=== PATIENT | female | born 2000 | race Caucasian/White ===

== ENCOUNTER 2024-05-27 16:39 | Outpatient (CLI) | payer MEDICAID, SELFPAY ==
[2024-05-27 16:45] VITALS: BMI 23.6
[2024-05-27 17:18] VITALS: BP 106/65; PULSE 91
[2024-05-27 17:38] VITALS: BP 115/72; PULSE 92
[2024-05-27 18:00] VITALS: BP 115/72; PULSE 92; RESP 18
[2024-05-27 20:43] LABS: HIV 1 & 2 Antibody Non-Reactive (Non-Reactiv); HIV 1 & 2 Antigen Non-Reactive (Non-Reactiv)
[2024-05-27 20:50] LABS: Rapid Plasma Reagin Syphilis Nonreactive (Nonreactive)
[2024-05-27 23:30] LABS: Hepatitis B Surface Antigen Non-Reactive (Nonreactive); Rubella IgG 221.3 IU/mL (0.0-10.0)
[2024-05-29 15:59] LABS: Chlamydia Trachomatis RNA TMA DETECTED (NOT DETECTED); Neisseria Gonorrhoeae RNA, TMA NOT DETECTED (NOT DETECTED)
== END 2024-05-27 17:55 | disposition home or self-care (01) ==
LOC: OPOB 16:40 → OBGYN 16:54
PROVIDERS: Family Provider Family Medicine; Visit Provider Obstetrics & Gynecology
DX: O26.899 Other specified pregnancy related conditions, unspecified trimester (principal); Z3A.00 Weeks of gestation of pregnancy not specified; R10.9 Unspecified abdominal pain
CPT/HCPCS: 36415; 59025; 86592; 86762; 87081; 87340; 87491; 87591; 87806; 99211

== ENCOUNTER → 2024-06-15 13:09 | Outpatient (BNVA) | payer OTHER, MEDICAID, SELFPAY | PROVIDERS: Visit Provider Nurse Practitioner Women's Health | DX: O09.30 Supervision of pregnancy with insufficient antenatal care, unspecified trimester (principal); O99.320 Drug use complicating pregnancy, unspecified trimester; F19.10 Other psychoactive substance abuse, uncomplicated | CPT/HCPCS: 80307; 84315 ==

== ENCOUNTER → 2024-06-21 13:09 | Outpatient (BNVA) | payer OTHER, MEDICAID, SELFPAY | PROVIDERS: Visit Provider Nurse Practitioner Women's Health | DX: O99.320 Drug use complicating pregnancy, unspecified trimester (principal); F19.10 Other psychoactive substance abuse, uncomplicated; O09.30 Supervision of pregnancy with insufficient antenatal care, unspecified trimester | CPT/HCPCS: 80307; 81000; 87491; 87591 ==

== ENCOUNTER 2024-06-28 09:03 | Inpatient (IN) | payer OTHER, MEDICAID, SELFPAY ==
[2024-06-28] VITALS (18 sets, daily range): BP systolic 94–130; BP diastolic 53–88; PULSE 76–102; RESP 16–18; TEMP 36.6–37.4; O2SAT 98–99; BMI 25.4
[2024-06-28 09:28] LABS: Basophils # 0.1 10^3/uL (0.0-0.1); Basophils % 0.3 %; Eosinophils # 0.1 10^3/uL (0.0-0.8); Eosinophils % 0.3 %; Hematocrit 30.4 % (36-47); Lymphocytes # 2.7 10^3/uL (0.8-4.8); Lymphocytes % 14.4 %; Mean Corpuscular HGB Conc 31.3 g/dL (30-55); Mean Corpuscular Hemoglobin 25.6 pg (27-33); Mean Corpuscular Volume 81.9 fl (85-98); Mean Platelet Volume 9.1 fL (7.4-10.4); Monocytes % 5.2 %; Neutrophils # 14.82 10^3/uL (1.8-7.7); Neutrophils % 78.7 %; Nucleated Red Blood Cells % 0 %; Platelet Count 514 10^3/cmm (157-399); Red Blood Count 3.71 10^6/uL (3.85-5.65); Red Cell Distribution Width 14.3 % (12.1-15.1); White Blood Count 18.82 10^3/uL (3.29-11.43)
--- NOTE | 2024-06-28 09:37 | PM.OPHPUD ---
Labor & Delivery H&P Update Date of Procedure: June 28, 2024 Date H&P Performed: 06/21/24 Changes to previous documentation: This is a 23-year-old female G4, P3 at 40.5 weeks gestation, CARLI 06/23/2024 admitted to labor and delivery in active labor. Patient's initial cervical exam?5 cm / 80%/-2 vertex presentation, EFM?category 1 with contractions every 2 to 4 minutes. Patient was recently seen at the clinic 06/21/2024 for routine visit. Her record has been reviewed with no medical information or physical exam no entries update to be made. Patient gives history of having fast labors, last 3 deliveries spontaneous vaginal without complications. Patient's medical record shows treatment of chlamydia with a negative test of cure. GBS negative PMH?negative Surgical history?dental Social history?patient admits to smoking tobacco 2 to 3 cigarettes/day, she denies alcohol or street drugs. Allergies?no known drug allergies Medications? vitamins Family history?no changes Physical exam?23-year-old female alert and orient x 3 breathing through contractions well. VSS, afebrile Mouth?very poor dentition almost edentulous Heart?regular rate and rhythm Lungs?CTA bilateral Abdomen?soft, gravid Extremities?no edema, negative Homans' sign Cervix?7 to 8 cm / 100%/0 vertex with category 1 EFM and contractions every 2 to 3 minutes. Patient does not desire an epidural. She will consider IV pain medicine if desired. Labor reviewed. Admission Diagnosis: 40.5-week gestation Multigravida-G4, P3 GBS negative Tobacco abuse during Late care in third trimester History of chlamydia with negative test of cure Poor dentition Primary indication for procedure: Patient admitted to labor and delivery for management of labor Planned procedure:
[2024-06-28 10:10] LABS: Amphetamines Screen Urine Negative (Negative); Barbiturates Screen Urine Negative (Negative); Benzodiazepines Screen Urine Negative (Negative); Cocaine Screen Urine Negative (Negative); Opiate Screen Urine Negative (Negative); PCP Screen Urine Negative (Negative); THC Screen Urine Positive (Negative)
[2024-06-28] MEDS: oxytocin 30 UNIT/500 ML BAG 600 UNIT IV (11:22)
[2024-06-28] MEDS: miSOPROStol 200 mcg Tablet 800 MCG PR (11:26)
--- NOTE | 2024-06-28 11:32 | P.PCNOB_ITS ---
Delivery Note: Date of delivery: June 28, 2024 Pre-delivery diagnoses: 40.5-week gestation Active labor Multigravida GBS negative Late care in third trimester History of anemia History of chlamydia with test of cure negative Poor dentition Post-delivery diagnoses: Same hemorrhage treated with Cytotec 800 mg Procedure: viable male 7 pounds 13 ounces, 9/9 Op report anesthesia: None Delivering Physician: Marlys Calabrese DO Estimated blood loss (mL): 500 Pre-Delivery Course: 23-year-old female admitted to lab or and delivery in early labor at 4 to 5 cm. Patient progressed to labor in an uneventful manner with contractions every 2 to 3 minutes. She desired no epidural pain management. Patient's care was with Dr. Mckay starting at 36 weeks gestation. She was treated for chlamydia with a negative test of cure. GBS negative. Delivery: 23-year-old G4, P4 delivered via of viable male OA presentation over intact perineum. The vertex presented and with rotation of the posterior shoulder the baby delivered. The baby boy was stimulated and after 2 to 3-minute delay the umbilical cord was clamped and cut and baby placed on the mother's abdomen for bonding. Nursing staff in attendance evaluated and assessed. Three-vessel cord was noted, cord pH and cord blood were drawn and handed off. The uterus was massaged and the placenta presented in a Laurent presentation with trailing membranes, followed by a large clot and moderate bleeding. 800 mg of Cytotec was placed rectally, the uterus firmed with continuous massage. IV fluid with Pitocin was bolused. Bleeding was controlled. Uterus remained firm. Uterus and vaginal vault were explored with no lacerations noted. Mother and infant are both in stable and satisfactory condition History History History 4 Term 4 0 Miscarriages/Ectopic 0 Living Children 4 A&P Assessment and plan (1) (spontaneous vaginal delivery): (2) hemorrhage: (3) Anemia: (4) Late care affecting in third trimester: Plan Began care Coding Level of Care Code Acute Code for Chg Fwd Diagnoses (spontaneous vaginal delivery) O80 hemorrhage O72.1 Anemia D64.9 Late care affecting in third trimester O09.33
[2024-06-28] MEDS: ibuprofen 800 mg tablet PO ×2 (15:06→20:27)
--- NOTE | 2024-06-28 19:12 | PC.NURSE ---
DFS CALLED PT DOESN'T HAVE CUSTODY OF HER OTHER 3 CHILDREN, SHE CAN NOT REMEMBER THEIR DATES MAYBE JANUARY OR 2019 AND JANUARY OR FEBRUARY 2021 AND MAYBE OCTOBER 2022 . PATIENT DID NOT HAVE ANY CARE PRIOR TO COMING TO OB LAST MONTH I BELIEVE THE . PATIENT WAS POSITIVE THEN FOR THC WELL TODAY. PT ACTS DIFFERENTLY THIS VISIT THAN PER VISIT. WAS VERY NERVOUS AND JITTERY THEN BUT NOT NOW, BOTH PARENTS SHOW MUCH TLC TO BABY. WE DID OBTAIN MEC STOOL AND URINE FOR TESTING. 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 GUERRA AT HER LAST OB VISIT WITH ME AND SHE DID FOLLOW UP WITH HIM SINCE THEN AND HAD REGULAR CARE.
[2024-06-28] MEDS: docusate sodium 100 mg Capsule PO (20:27)
[2024-06-28] MEDS: acetaminophen 325 mg Tablet 650 MG PO (21:26)
[2024-06-29 00:41] LABS: Hematocrit 24.1 % (36-47); Mean Corpuscular HGB Conc 32.8 g/dL (30-55); Mean Corpuscular Hemoglobin 25.8 pg (27-33); Mean Corpuscular Volume 78.8 fl (85-98); Mean Platelet Volume 9.3 fL (7.4-10.4); Platelet Count 479 10^3/cmm (157-399); Red Blood Count 3.06 10^6/uL (3.85-5.65); Red Cell Distribution Width 14.5 % (12.1-15.1); White Blood Count 18.83 10^3/uL (3.29-11.43)
[2024-06-29 01:55] VITALS: BP 106/63; PULSE 76; RESP 15; TEMP 36.7; O2SAT 98
[2024-06-29 04:00] VITALS: BP 108/69; PULSE 79; RESP 16; TEMP 36.9; O2SAT 99
[2024-06-29 06:00] VITALS: BP 108/69; PULSE 79; RESP 16; TEMP 36.9; O2SAT 99
[2024-06-29] MEDS: PRENATAL VIT NO.130/IRON/FOLIC 1 EACH TABLET PO (08:52)
[2024-06-29] MEDS: docusate sodium 100 mg Capsule PO (08:52)
[2024-06-29] MEDS: ibuprofen 800 mg tablet PO ×2 (08:52→16:12)
[2024-06-29 10:00] VITALS: BP 115/74; PULSE 75; RESP 17; TEMP 36.6; O2SAT 99
[2024-06-29] MEDS: acetaminophen 325 mg Tablet 650 MG PO (12:32)
--- NOTE | 2024-06-29 14:05 | P.PN_ITS ---
BATH ATTENDANT Subjective 2 Subjective: Interval history: no c/o no bleeding, pain eating, voiding, ambulating well Labor: Station: +1 Amniotic Membrane Status: Intact Monitor Mode: External Contraction Pattern: Regular Vitals/I&O/Wt Last Vital Signs Temp 98.0 F 06/29/24 17:00 Pulse 72 06/29/24 17:00 Resp 16 06/29/24 17:00 BP 111/69 06/29/24 17:00 Pulse Ox 99 06/29/24 17:00 O2 Del Method Room Air 06/29/24 16:15 Physical Exam 2 Narrative: Exam: afebrile, VS normal comfortable, awake, alert Abd: soft, nontender. fundus firm Ext: no edema; nontender Data 06/29/24 00:30 A&P Assessment and plan (1) (spontaneous vaginal delivery): PPD #1 doing well discharge to home today instructions and precautions given call/return if fever, chills, headache, blurry vision, nausea, vomiting, abdominal pain; vaginal bleeding or discharge; shortness of breath, chest pain, leg pains or swelling; inability to void, perineal pain or swelling; feelings of depression or mood changes; thoughts of suicide or harming others; inability to care for baby. f/u in 2 weeks or PRN Attestations 2 Medical Necessity Statement*: patient s/p vaginal delivery, plan to discharge to home today Coding Level of Care Code Acute Code for Chg Fwd Diagnoses (spontaneous vaginal delivery) O80 Time Spent (min) 20
--- NOTE | 2024-06-29 15:10 | PM.OBGYDC ---
Discharge Providers GASTROENTEROLOGY MANAGER Date of Admission: 06/28/24 09:03 Date of Discharge: 06/29/24 Attending Provider at Admission: Marlys Calabrese DO Attending Provider at Discharge: Slim Mendoza MD Consults: none Primary GASTROENTEROLOGY MANAGER: Slim Mendoza MD Diagnoses at Discharge Discharge Diagnosis (1) (spontaneous vaginal delivery): Details from hospital stay: 23 y.o. approximate EDC June 23, 2024 at approximately 40.5 weeks gestation patient's first visit was on June 01, 2024 had received no care prior to that date h/o x three presented to L&D c/o painful uterine contractions was in active labor fetus reassuring throughout patient proceeded to deliver vaginally without any complications had mild bleeding well-controlled with cytotec rectally patient did well and was discharged to home on the first day Of note, Department of Family Services was involved and removed from patient's custody. Status: Acute Reason for Visit Reason for Visit: CTX Brief History: 23 y.o. approximate EDC June 23, 2024 at approximately 40.5 weeks gestation patient's first visit was on June 01, 2024 had received no care prior to that date h/o x three presented to L&D c/o painful uterine contractions Hospital Course Hospital Course 23 y.o. approximate EDC June 23, 2024 at approximately 40.5 weeks gestation patient's first visit was on June 01, 2024 had received no care prior to that date h/o x three presented to L&D c/o painful uterine contractions was in active labor fetus reassuring throughout patient proceeded to deliver vaginally without any complications had mild bleeding well-controlled with cytotec rectally patient did well and was discharged to home on the first day Of note, Department of Family Services was involved and removed from patient's custody. Information Peripartum Data: Delivery Method: Vaginal Laceration description: None Episiotomy description: None complications: none Physical Exam Narrative: afebrile, VS normal comfortable, awake, alert Abd: soft, nontender. fundus firm Ext: no edema; nontender History History History 4 Term 4 0 Miscarriages/Ectopic 0 Living Children 4 Discharge Data Studies Completed and Pending Laboratory Results WBC 18.83 10^3/uL (3.29-11.43) H 06/29/24 00:30 RBC 3.06 10^6/uL (3.85-5.65) L 06/29/24 00:30 Hgb 7.90 g/dL (11.27-16.99) L 06/29/24 00:30 Hct 24.1 % (36-47) L 06/29/24 00:30 MCV 78.8 fl (85-98) L 06/29/24 00:30 MCH 25.8 pg (27-33) L 06/29/24 00:30 MCHC 32.8 g/dL (30-55) 06/29/24 00:30 RDW 14.5 % (12.1-15.1) 06/29/24 00:30 Plt Count 479 10^3/cmm (157-399) H 06/29/24 00:30 MPV 9.3 fL (7.4-10.4) 06/29/24 00:30 Neut % (Auto) 78.7 % 06/28/24 09:11 Lymph % (Auto) 14.4 % 06/28/24 09:11 [place] % (Auto) 5.2 % 06/28/24 09:11 Eos % (Auto) 0.3 % 06/28/24 09:11 Baso % (Auto) 0.3 % 06/28/24 09:11 Neut # (Auto) 14.82 10^3/uL (1.8-7.7) H 06/28/24 09:11 Lymph # (Auto) 2.7 10^3/uL (0.8-4.8) 06/28/24 09:11 [place] # (Auto) 1.0 10^3/uL (0.2-0.9) H 06/28/24 09:11 Eos # (Auto) 0.1 10^3/uL (0.0-0.8) 06/28/24 09:11 Baso # (Auto) 0.1 10^3/uL (0.0-0.1) 06/28/24 09:11 Nucleated RBC % (auto) 0 % 06/28/24 09:11 Nucleated RBCs # 0.0 /100WBC 06/28/24 09:11 Urine Opiates Screen Negative ng/mL (Negative) 06/28/24 08:45 Ur Barbiturates Screen Negative ng/mL (Negative) 06/28/24 08:45 Ur Phencyclidine Scrn Negative ng/mL (Negative) 06/28/24 08:45 Ur Amphetamines Screen Negative ng/mL (Negative) 06/28/24 08:45 U Benzodiazepines Scrn Negative ng/mL (Negative) 06/28/24 08:45 Urine Cocaine Screen Negative ng/mL (Negative) 06/28/24 08:45 U Marijuana (THC) Screen Positive ng/mL (Negative) H 06/28/24 08:45 Blood Type O Positive 06/28/24 09:11 Rho(D) Type Rh positive 06/28/24 09:11 Antibody Screen Negative 06/28/24 09:11 Procedures Performed vaginal delivery Vitals Last Vital Signs Temp 98.0 F 06/29/24 17:00 Pulse 72 06/29/24 17:00 Resp 16 06/29/24 17:00 BP 111/69 06/29/24 17:00 Pulse Ox 99 06/29/24 17:00 O2 Del Method Room Air 06/29/24 16:15 Results Labs OB ([facility]): Obstetrics US 06/02/24 Blood Type O Positive 06/28/24 Antibody Screen Negative 06/28/24 Hct 24.1 % (36-47) L 06/29/24 Hgb 7.90 g/dL (11.27-16.99) L 06/29/24 Rho(D) Type Rh positive 06/28/24 Plt Count 479 10^3/cmm (157-399) H 06/29/24 Hep Bs Antigen Non-reactive (Nonreactive) 05/27/24 Rubella IgG Antibody 221.3 IU/mL (0.0-10.0) H 05/27/24 RPR Nonreactive (Nonreactive) 05/27/24 HIV 1&2 Ab & HIV 1 Ag Non-reactive (Non-Reactiv) 05/27/24 C.trachomatis RNA (TMA) Not detected (NOT DETECTED) 06/21/24 N.gonorrhoeae RNA (TMA) Not detected (NOT DETECTED) 06/21/24 T. vaginalis Amp RNA Not detected (NOT DETECTED) 06/01/24 Chlamydia/GC Comment See note 06/21/24 Glucose 1 Hr 50 gm 92 mg/dL (85-140) 06/01/24 Urine Opiates Screen Negative ng/mL (Negative) 06/28/24 Ur Barbiturates Screen Negative ng/mL (Negative) 06/28/24 Ur Phencyclidine Scrn Negative ng/mL (Negative) 06/28/24 Ur Amphetamines Screen Negative ng/mL (Negative) 06/28/24 U Benzodiazepines Scrn Negative ng/mL (Negative) 06/28/24 Urine Cocaine Screen Negative ng/mL (Negative) 06/28/24 U Marijuana (THC) Screen Positive ng/mL (Negative) H 06/28/24 Pap Smear Interpret See note A 06/01/24 Discharge Plan Discharge Patient Disposition: Home Condition: Stable Prescriptions: No Action No Known Home Medications Discharge Orders: Discharge Order (Routine); Ordered 06/29/24 Ordered By: lSim Mendoza Referrals: Magi Jewell SUPERVISOR WOUND [Nurse Practitioner] - 07/14/24 8:45 am Discharge Diet: Usual diet Discharge Activity: Increase activity as tolerated Patient Instructions: Depression (DC), Perineal Care (DC), Bleeding (DC), Preeclampsia and Eclampsia After Delivery (GEN), Breast Care for the Non- Mother (DC), OB Discharge Report, OB Food/Drug Interaction Guide, OB Care at Home, Opioid Safety, Abnormal Bleeding Activity Restrictions/Additional Instructions: Return to clinic for followup in two weeks continue iron supplements and iron-rich foods Discharge Attestations GASTROENTEROLOGY MANAGER Time Spent in Discharge Care*: less than 30 min Coding Level of Care Code Acute Code for Chg Fwd Diagnoses (spontaneous vaginal delivery) O80 Time Spent (min) 20
[2024-06-29 16:15] VITALS: BP 108/71; PULSE 76; RESP 16; O2SAT 97
[2024-06-29] MEDS: HYDROcodone-acetaminophen 5-325 mg Tablet PO (16:56)
[2024-06-29 17:00] VITALS: BP 111/69; PULSE 72; RESP 16; TEMP 36.7; O2SAT 99
== END 2024-06-29 19:05 | disposition home or self-care (01) | DRG 806 ==
LOC: OPOB 09:03 → OBGYN 09:03
PROVIDERS: Admitting Provider Obstetrics & Gynecology; Visit Provider Obstetrics & Gynecology
DX: O48.0 Post-term pregnancy (principal); O72.1 Other immediate postpartum hemorrhage; Z37.0 Single live birth; Z3A.40 40 weeks gestation of pregnancy; O99.334 Smoking (tobacco) complicating childbirth; F17.210 Nicotine dependence, cigarettes, uncomplicated; O43.93 Unspecified placental disorder, third trimester; O90.81 Anemia of the puerperium
CPT/HCPCS: 36415; 59025; 59409; 80306; 85025; 85027; 86850; 86900; 99211; J2590